=== PATIENT | male | born 1980 | race Caucasian/White ===

== ENCOUNTER 2025-05-06 02:45 | Day surgery (SDC) | payer OTHER, SELFPAY ==
[2025-04-21 12:53] VITALS: BMI 27.4
--- OUTSIDE RECORDS SUMMARY | 2025-05-06 02:50 | XMS_ITS | Clinical Summary ---
Author Organization [facility] e Address [address] [place] [address] Care Team Providers Care Ship'S Pilot Name Role Phone Kylah Bass MD Primary Care Provider +1- [phone] Allergies No known active allergies Medications FLUoxetine (PROzac) 10 mg tabletIndication s:MUNIR (generalized anxiety disorder) Take 1 Tablet (10 mg) by mouth daily. 90 Tablet 3 04/07/2023 Active buPROPion HCL (WELLBUTRIN XL) 150 mg Extended Release 24 hour tabletIndication s:Current moderate episode of major depressive disorder without prior episode (CMS/HCC) Take 1 Tablet (150 mg) by mouth daily in the morning. 90 Tablet 3 04/07/2023 Active Active Problems Problem Noted Date Diagnosed Date Current moderate episode of major depressive disorder without prior episode 09/10/2022 Overview (09/10/2022): Wellbutrin XL Assessment & Plan (09/10/2022 3:02 PM ENROLLMENT SERVICES VICE PRESIDENT): Poorly controlled, add bupropion per orders Every Word Counts - Depression ([facility]) Gynecomastia, male 09/10/2022 Assessment & Plan (09/10/2022 3:01 PM ENROLLMENT SERVICES VICE PRESIDENT): May be medication related, labs per orders. Obesity (BMI 35.0-39.9 without comorbidity) 08/29 Assessment & Plan (09/10/2022 3:01 PM ENROLLMENT SERVICES VICE PRESIDENT): Discussed diet/exercise/weight loss recommendations. MUNIR (generalized anxiety disorder) 09/27/2021 Overview (09/10/2022): Fluoxetine Assessment & Plan (09/10/2022 3:01 PM ENROLLMENT SERVICES VICE PRESIDENT): Improved, continue fluoxetine. Systolic murmur 04/22/2017 Paternal family history of congestive heart fail ure 04/22/2017 Vasectomy evaluation 08/11/2015 Lipoma 05/27/2012 Elevated blood pressure read ing without diagnosis of hypertension 05/25/2012 Resolved Problems Problem Noted Date Diagnosed Date Resolved Date Family history of early CAD 05/25/2012 04/22/2017 Immunizations Immunization Administration Dates Next Due (ADACEL/BOOSTRIX)(10 YR UP) TDAP VACCINE, 0.5ML, IM 08/11/2012 INFLUENZA VACCINE QUADRIVALE NT 6 MOS UP CELL DERIVED PF IM 07/16/2018 INFLUENZA VACCINE QUADRIVALENT 6 MOS UP PF IM ,07/17/2021 Influenza Vaccine Quad Split 3+ Yrs Im 4 Influenza Vaccine Split 3+ Yrs IM 09/27/2013 Family History Medical History Relation Name Comments Heart Disease Father Trent [place] in early 40 s Cancer Maternal Grandfather Johnie Cancer Maternal Grandmother Jeni Diabetes Maternal Grandmother Jeni Stroke Maternal Grandmother Jeni Thyroid Disease Maternal Grandmother Jeni Hypertension Mother Na Cancer Paternal Grandfather Trent Heart Disease Paternal Grandfather Trent Breast Cancer Paternal Grandmother Sofya Cancer Paternal Grandmother Sofya Relation Name Status Comments Father Trent Maternal Grandfather Johnie Maternal Grandmother Jeni Mother Na Alive Paternal Grandfather Trent Paternal Grandmother Sofya Social History Tobacco Use Types Packs/Day Years Used Date Smoking Tobacco: Never Smokeless Tobacco: Never Tobacco Cessation:Counseling Given: Not Answered Alcohol Use Standard Drinks/Week Comments Not Currently 0 (1 standard drink = 0.6 oz pur e alcohol) Sex and Gender Information Value Date Recorded Sex Assigned at Not on file Legal Sex Male 6:11 AM ENROLLMENT SERVICES VICE PRESIDENT Gender Identity Not on file Sexual Orientation Not on file Occupation Industry Job Start Date Job End Date Not on file Not on file Not on file Not on file Last Filed Vital Signs Vital Sign Reading Time Taken Comments Blood Pressure 122/80 07/18/2022 8:04 AM CDT Pulse 73 07/18/2022 8:04 AM CDT Temperature 36.7 C (98 F) 07/18/2022 8:04 AM CDT Respiratory Rate 16 07/17/2021 8:49 AM CDT Oxygen Saturation 98% 07/18/2022 8:04 AM CDT Inhaled Oxygen Concentration - - Weight 134.3 kg (296 lb) 07/18/2022 8:04 AM CDT Height 188 cm (6' 2) 07/18/2022 8:04 AM CDT Body Mass Index 38 07/18/2022 8:04 AM CDT Plan of Treatment Health Maintenance Due Date Last Done Comments HPV VACCINES (1 - Male 3-dos e series) 1994 HEPATITIS B VACCINES (1 of 3 - 19+ 3-dose series) 1998 DTAP/TDAP/TD VACCINES (2 - T d or Tdap) 08/11/2022 08/11/2012 COLORECTAL SCREENING 2024 Colorectal Cancer Screening 2024 FIT-DNA Q 3 years 2024 FIT/FOBT Q 1 year 2024 Flex Sig/CT Colonography Q 5 years 2024 INFLUENZA VACCINE (#1) 2025 , 07/17/2021, 07/16/2018, Additional history exists Insurance [facility] [employer] Care Teams Ship'S Pilot Relationship Specialty Start Date End Date Kylah Bass MD PCP - General Family Practice 05/25/12
[2025-05-06 09:15] VITALS: BP 128/71; PULSE 78; RESP 16; TEMP 36.1; O2SAT 100; BMI 27.3
--- NOTE | 2025-05-06 09:24 | P.PNAN_ITS ---
Anes - Initial Pre Proc Eval Procedure: Operation Date: 05/06/25 10:30 Proposed Procedures p Screening Colonoscopy - Tal Ivory MD Date/Time: 05/06/25 09:24 Surgeon: Tal Ivory MD Pre Op Diagnosis: Screening Patient Data Age: 44 Gender: M Height: 1.88 m Weight: 97 kg Allergies Allergy/AdvReac Type Severity Reaction Status Date / Time No Known Allergies Allergy Verified 05/06/25 09:21 Home Medications ?Medication ?Instructions ?Recorded ?Confirmed ?Type fluoxetine 10 mg capsule See Rx Instructions .Route 01/03/25 01/13/25 Rx .COMPLEX #90 caps Wegovy 2.4 mg/0.75 mL subcutaneous 2.4 mg (0.75 mL) subcut WEEKLY #3 02/01/25 04/21/25 Rx pen injector (semaglutide (weight mL loss)) tirzepatide (weight loss) 12.5 12.5 mg (0.5 mL) subcut WEEKLY #2 02/03/25 05/06/25 Rx mg/0.5 mL subcutaneous pen mL injector (Zepbound) bupropion HCl 150 mg 24 hr tablet, 150 mg PO QAM #90 tabs 03/29/25 05/06/25 Rx extended release Patient hx anesthesia problems: none Family hx anesthesia problems: none Results Review: All pre-operative results and documents have been reviewed as part of the pre- operative evaluation. [facility] Past Medical History Medical History Vasectomy planned Surgical History Surgical History [place] teeth extracted Family History Family History Father Heart disease Mother Hypertension Grandparent Diabetes mellitus Lung cancer Breast cancer Hypertension Heart disease Thyroid disease Social History Social History Social History: caffeine use - 1 cup of tea per day Smoking status: Never smoker Alcohol intake: never Substance use: never Substance use type: does not use Do You Feel Safe in your Home?: Yes Lack of Transportation: No Lack of Food: Never True Current Housing: I Have Housing Concerned About Future Housing: No Difficulty Paying Gas/Electric Bills: No Difficulty Paying for Meds: No Currently Unemployed: No Education: Bachelor's Degree Difficulty w/ Childcare or Family Care: No Living arrangements: with family Spiritual care concerns: No Anes - Eval Final PreProcedure Day of Procedure 05/06/25 09:24 Patient weight: overweight Heart: regular rate and rhythm Lungs: clear to auscultation Airway: Mallampati scale class II Neurological: alert and oriented Last oral intake: >/= 8 hours ASA classification: II Emergent: no Anesthetic plan: proceed Anesthesia type and monitoring: general GIVS and standard monitoring Results Review: All pre-operative results and documents have been reviewed as part of the pre- operative evaluation. Informed Consent: The patient's anesthetic plan and its attendant risks and benefits were discussed with the patient/family/POA. Questions were solicited and answers provided to the satisfaction of the patient/family/POA.
[2025-05-06] MEDS: LACTATED RINGERS 1,000 ML 150 ML IV CONT (09:33)
--- NOTE | 2025-05-06 09:37 | P.HP_ITS ---
H&P: HPI History of Present Illness Date/Time: 05/06/25 09:37 Chief Complaint: screening colonoscopy Narrative: This is the patient's first colonoscopy. There are no GI symptoms and there is no family history of colorectal cancer. Review of Systems Review of Systems: All systems reviewed & are unremarkable except as noted in HPI and below PMFSH Past Medical History Medical History Vasectomy planned Surgical History Surgical History [place] teeth extracted Family History Family History Father Heart disease Mother Hypertension Grandparent Diabetes mellitus Lung cancer Breast cancer Hypertension Heart disease Thyroid disease Social History Social History Social History: caffeine use - 1 cup of tea per day Smoking status: Never smoker Alcohol intake: never Substance use: never Substance use type: does not use Do You Feel Safe in your Home?: Yes Lack of Transportation: No Lack of Food: Never True Current Housing: I Have Housing Concerned About Future Housing: No Difficulty Paying Gas/Electric Bills: No Difficulty Paying for Meds: No Currently Unemployed: No Education: Bachelor's Degree Difficulty w/ Childcare or Family Care: No Living arrangements: with family Spiritual care concerns: No Meds Home Medications and Allergies Home Medications ?Medication ?Instructions ?Recorded ?Confirmed ?Type fluoxetine 10 mg capsule See Rx Instructions .Route 01/03/25 01/13/25 Rx .COMPLEX #90 caps Wegovy 2.4 mg/0.75 mL subcutaneous 2.4 mg (0.75 mL) subcut WEEKLY #3 02/01/25 04/21/25 Rx pen injector (semaglutide (weight mL loss)) tirzepatide (weight loss) 12.5 12.5 mg (0.5 mL) subcut WEEKLY #2 02/03/25 05/06/25 Rx mg/0.5 mL subcutaneous pen mL injector (Zepbound) bupropion HCl 150 mg 24 hr tablet, 150 mg PO QAM #90 tabs 03/29/25 05/06/25 Rx extended release Allergies Allergy/AdvReac Type Severity Reaction Status Date / Time No Known Allergies Allergy Verified 05/06/25 09:21 Vital Signs Vital Signs - 24 hr 05/06/25 09:15 Temperature 97.0 F L Pulse Rate 78 Respiratory Rate 16 Blood Pressure 128/71 Pulse Oximetry 100 Oxygen Delivery Room Air Exam Const: General: cooperative and healthy appearing Resp: Effort & Inspection: normal respiratory effort and able to speak in complete sentences Auscultation: clear to auscultation bilaterally Cardio: Rate: regular rate Rhythm: regular rhythm GI: Inspection: normal to inspection GI Palp: No No hepatosplenomegaly present Auscultation: normal bowel sounds Rectal Exam: deferred Skin: General skin exam: normal color Psych: Appearance: grossly normal Mental Status: mental status grossly normal Assessment and Plan Assessment and plan (1) Encounter for screening colonoscopy: Code(s): Z12.11 - Encounter for screening for malignant neoplasm of colon Status: Acute Assessment and Plan: The patient is deemed a good candidate for the procedure. Consent signed. Will proceed.
--- NOTE | 2025-05-06 10:22 | S_PTH ---
PATIENT: Issac Aponte LOC: [facility] #:[id number] AGE/SX: 44/M ROOM: RE05/06/[address]: Tal Ivory MD : 1980 BED: DIS: 05/06/2025 SPEC #: [id number] RECD: 05/06/25 10:28 STATUS: YVROSE REQ #: [id number] LANDON: 05/06/25 10:[address]: Tal Ivory DEPT: [facility] Surgical RECD BY: Radha Kim ENTERED: 05/06/25 10:28 SP TYPE: Surgical OTHR DR: Shantelle Keenan MD Tissues: A - Colon Polypectomy B - Colon Polypectomy Procedures: Hematoxylin and Eosin Stain Gross and Microscopic Level 4
[2025-05-06 10:23] VITALS: BP 109/68; PULSE 73; RESP 17; O2SAT 100
[2025-05-06 10:33] VITALS: BP 106/68; PULSE 72; RESP 18; O2SAT 100
[2025-05-06 10:43] VITALS: BP 110/72; PULSE 70; RESP 17; O2SAT 100
== END 2025-05-06 10:53 | disposition home or self-care (01) ==
PROVIDERS: PCP Family Medicine; Referring Provider Family Medicine; Visit Provider Internal Medicine Gastroenterology
PROC: 0DJD8ZZ Inspection of Lower Intestinal Tract, Via Natural or Artificial Opening Endoscopic (ICD-10-PCS; CPT 45378; principal; 2025-05-06 10:30)
DX: Z12.11 Encounter for screening for malignant neoplasm of colon (principal); K63.5 Polyp of colon; Z79.85 Long-term (current) use of injectable non-insulin antidiabetic drugs; Z98.890 Other specified postprocedural states; Z80.1 Family history of malignant neoplasm of trachea, bronchus and lung; Z80.3 Family history of malignant neoplasm of breast; Z82.49 Family history of ischemic heart disease and other diseases of the circulatory system
CPT/HCPCS: 45385; 88305; J2704; J7120

== ENCOUNTER 2025-07-14 10:22 | Emergency (ER) | payer OTHER, SELFPAY ==
[2025-07-14] VITALS (23 sets, daily range): BP systolic 112–140; BP diastolic 61–88; PULSE 75–90; RESP 14–20; O2SAT 93–100
--- NOTE | ~2025-07-14 | XR_ITS ---
EXAMINATION: XR shoulder RT min 2V, 07/14/2025 12:40 CDT HISTORY: Right shoulder pain COMPARISON: No comparisons available. Findings: No acute fracture or malalignment. No significant degenerative changes. Soft tissues unremarkable. Impression: No acute fracture or malalignment. Reviewed, dictated and finalized at location P. Impression: No acute fracture or malalignment.
--- NOTE | ~2025-07-14 | XR_ITS ---
Examination: XR chest 2V Clinical History: Right shoulder pain Comparison: None Technique: PA and Lateral Findings: Cardiomediastinal silhouette normal size and configuration. Lungs clear. No acute bony abnormality. IMPRESSION: 1. No acute cardiopulmonary findings. Reviewed, dictated and finalized at location R.
--- NOTE | 2025-07-14 11:48 | ECG_ITS ---
Test Date: 2025-07-14 12:02:53 Measurements Intervals [place] Rate: 92 P: 42 LA: 154 QRS: 64 QRSD: 93 T: 43 QT: 350 QTc: 435 Interpretive Statements SINUS RHYTHM BASELINE ARTIFACT- I, II, III, AVR, AVL, AVF NORMAL ECG No previous ECG available for comparison Electronically Signed On 07-14-2025 12:13:26 CDT by Valente Jenkins D.O.
--- OUTSIDE RECORDS SUMMARY | 2025-07-14 11:59 | XMS_ITS | Clinical Summary ---
Author Organization [facility] e Address [address] [place] [address] Care Team Providers Care Link Assembler Name Role Phone Kylah Bass MD Primary Care Provider +1- [phone] Allergies No known active allergies Medications FLUoxetine [...] XL Assessment & Plan (09/10/2022 3:02 PM LINK WIRE FABRIC MACHINE TENDER): Poorly controlled, add bupropion per orders Every Word Counts - Depression ([facility]) Gynecomastia, male 09/10/2022 Assessment & Plan (09/10/2022 3:01 PM LINK WIRE FABRIC MACHINE TENDER): May be medication related, labs per orders. Obesity (BMI 35.0-39.9 without comorbidity) 08/29 Assessment & Plan (09/10/2022 3:01 PM LINK WIRE FABRIC MACHINE TENDER): Discussed diet/exercise/weight loss recommendations. MUNIR (generalized anxiety disorder) 09/27/2021 Overview (09/10/2022): Fluoxetine Assessment & Plan (09/10/2022 3:01 PM LINK WIRE FABRIC MACHINE TENDER): Improved, continue fluoxetine. Systolic murmur 04/22/2017 Paternal [...] Relation Name Comments Heart Disease Father Trent [place] in early 40 s Cancer Maternal Grandfather [...] on file Legal Sex Male 6:11 AM LINK WIRE FABRIC MACHINE TENDER Gender Identity Not on file Sexual Orientation [...] Health Maintenance Due Date Last Done Comments HEPATITIS B VACCINES (1 of 3 - 19+ 3-dose series) 1998 DTAP/TDAP/TD VACCINES (2 - Td or Tdap) 08/11/2022 08/11/2012 COLORECTAL SCREENING 2024 Colorectal Cancer Screening 2024 FIT-DNA Q 3 years 2024 FIT/FOBT Q 1 year 2024 Flex Sig/CT Colonography Q 5 years 2024 INFLUENZA VACCINE (#1) 2025 2, 07/17/2021, 07/16/2018, Additional history exists HPV VACCINES Aged Out No longer eligi ble based on patient's age to complete this topic Insurance [facility] Care Teams Link Assembler Relationship Specialty Start Date End Date Kylah Bass MD PCP - General Family Practice 05/25/12
[2025-07-14] MEDS: KETOROLAC 30 MG/ML VIAL (*BKC) IV PUSH (12:07)
[2025-07-14 12:41] LABS: Troponin I < 0.012 ng/mL (0.000-0.034)
--- NOTE | 2025-07-14 12:55 | ED.NEUROSD ---
HPI - Neuro Symptoms/Deficit General Chief Complaint: Neuro Symptoms/Deficit Stated Complaint: woke up at 0430, numb/no movement R arm Time Seen by Provider: 07/14/25 11:31 Source: patient Mode of arrival: ambulatory Limitations: no limitations History of Present Illness HPI Narrative: This is a 45-year-old male, who denies significant past medical history, presenting to the emergency department complaining of right shoulder pain beginning at 04:30 this morning. Patient denies any known trauma, heavy lifting and states he typically sleeps on the left side. He is describes the pain as sharp, head at the posterior aspect of the right shoulder, initially rated 5/10 in now nearly resolved with some radiation to the right anterior chest. He states the pain was aggravated by walking or the arm hanging at his side. He felt some lightheadedness that he attributes to the pain. He has no other complaints at this time. Related Data Allergies Allergy/AdvReac Type Severity Reaction Status Date / Time No Known Allergies Allergy Verified 05/06/25 09:21 Review of Systems Review of Systems: All systems reviewed & are unremarkable except as noted in HPI and below PMFSH Past Medical History Medical History Vasectomy planned Surgical History Surgical History [place] teeth extracted Family History Family History Father Heart disease Mother Hypertension Grandparent Diabetes mellitus Lung cancer Breast cancer Hypertension Heart disease Thyroid disease Social History Social History Social History: caffeine use - 1 cup of tea per day Smoking status: Never smoker Alcohol intake: never Substance use: never Substance use type: does not use Do You Feel Safe in your Home?: Yes Lack of Transportation: No Lack of Food: Never True Current Housing: I Have Housing Concerned About Future Housing: No Difficulty Paying Gas/Electric Bills: No Difficulty Paying for Meds: No Currently Unemployed: No Education: Bachelor's Degree Difficulty w/ Childcare or Family Care: No Living arrangements: with family Spiritual care concerns: No Exam Narrative: GENERAL: Well-developed, well-nourished, and in no acute distress. HEAD: Normocephalic, atraumatic. EYES: PERRLA and EOMI. CHEST: Clear to auscultation. No respiratory distress. No wheezes rales or rhonchi HEART: Regular rate and rhythm. No murmur heard. Normal peripheral pulses. ABDOMEN: Soft, nontender, nondistended, normal active bowel sounds. EXTREMITIES: No visible deformity of the right shoulder. Tenderness to palpation at the posterior aspect without step-off or crepitus. Some tenderness to palpation over the right trapezius with muscle spasm. Passive range of motion of the arm a list it is pain on anterior flexion and abduction at 100?. Normal range of motion of all other extremities. No edema. SKIN: Warm, dry, no rash. NEURO: Alert and oriented x3. No focal deficit. Moving all 4 limbs spontaneously PSYCH: Normal mood and affect. Course Course Emergency Course: 13:13 - EKG not concerning for ischemia. Troponin negative. Heart score 1. I do not suspect ACS. X-ray of the chest and shoulder not concerning for acute cardiopulmonary or musculoskeletal process. I suspect the patient's pain is related to rotator cuff arthropathy. Will discharge with NSAIDs, lidocaine patches, muscle relaxers and recommendation for primary care follow-up. I discussed the findings and recommendations with patient. Discussed return and emergency precautions including signs/symptoms of ACS respiratory distress. The patient voiced understanding and agreement with the plan. All questions answered to his satisfaction. Vital Signs Vital signs: Vital Signs Pulse Rate 86 07/14/25 11:37 Respiratory Rate 14 07/14/25 11:37 Blood Pressure 140/77 07/14/25 11:37 Pulse Oximetry 100 07/14/25 11:37 Oxygen Delivery Room Air 07/14/25 11:37 Pulse Rate 86 07/14/25 11:37 Respiratory Rate 14 07/14/25 11:37 Blood Pressure 140/77 07/14/25 11:37 Pulse Oximetry 100 07/14/25 11:37 Oxygen Delivery Room Air 07/14/25 11:37 MDM - Neuro Symptoms/Deficit MDM Narrative Medical decision making narrative: Plan: Imaging, EKG, pain control, labs, reassess Differential Diagnosis Differential diagnosis: Likely other (Rotator cuff of arthropathy, fracture, contusion, cervical radiculopathy, ACS, other) Lab Data Labs: Lab Results 07/14/25 07/14/25 Range/Units 11:34 12:09 POC Capillary Glucose 76 (65-105) mg/dl Troponin I < 0.012 (0.000-0.034) ng/mL ECG Data EKG #1: Attestation: I personally reviewed and interpreted this ECG as follows: ECG completion date: 07/14/25 ECG completion time: 12:02 Prior ECG tracings: not available for review Interpretation: Sinus rhythm, rate 92, normal axis, no ST segment elevations or T-wave inversions concerning for ischemia, normal intervals with QTC of 400 Discharge Plan Discharge Clinical Impression: Acute pain of right shoulder, Rotator cuff arthropathy Patient Disposition: Home Condition: Stable Instructions: Antibiotic Form, Rotator Cuff Injury (ED), Rotator Cuff Injury Exercises (DC) Additional Instructions: You were seen in the emergency department. X-rays of the chest and shoulder were not concerning for fracture, separation or dislocation. An EKG and labs were not concerning for injury to the heart. I suspect your shoulder pain is related to a rotator cuff injury. I recommend NSAIDs, lidocaine patches, muscle relaxers and follow-up with a primary care doctor. If you develop new or worsening chest pain, weakness/numbness, fevers with severe joint pain and swelling, the arm/hand appears blue/cold, or if you have other emergent concerns for life, limb, or eyesight, return to the emergency department. Patient Language: Fijian Prescriptions: New lidocaine 5 % adhesive patch,medicated 1 patch topical DAILY Qty: 30 0RF Rx Instructions: leave on most painful area for up to 12 hrs naproxen 500 mg tablet 500 mg PO BID PRN (Reason: pain) Qty: 20 0RF cyclobenzaprine 10 mg tablet 10 mg PO TID PRN (Reason: muscle spasm) Qty: 12 0RF No Action fluoxetine 10 mg capsule See Rx Instructions .ROUTE .COMPLEX Qty: 90 1RF Dose Instruction: TAKE 1 CAPSULE BY MOUTH ONCE A DAY Patient Comments: Not taking Rx Instructions: TAKE 1 CAPSULE BY MOUTH ONCE A DAY Wegovy 2.4 mg/0.75 mL pen injector 2.4 mg subcut WEEKLY Qty: 3 11RF Patient Comments: not taking Zepbound 12.5 mg/0.5 mL pen injector 12.5 mg subcut WEEKLY Qty: 2 8RF Patient Comments: Rx Instructions: max bmi 40.6 now 29.5 ( has been on zepbound) bupropion HCl 150 mg tablet extended release 24 hr 150 mg PO QAM Qty: 90 1RF Follow-up/Referrals: Shantelle Keenan MD [Primary Care Provider, [facility]] - 2 Weeks Time of Disposition: 13:37
--- OUTSIDE RECORDS SUMMARY | 2025-07-14 13:51 | XMS_ITS | Clinical Summary ---
Author Organization [facility] e Address [address] [place] [address] Care Team Providers Care C Architect Name Role Phone Kylah Bass MD Primary Care Provider +1- [phone] Allergies No known active allergies Medications FLUoxetine [...] XL Assessment & Plan (09/10/2022 3:02 PM ENTERPRISE APPLICATION DEVELOPER): Poorly controlled, add bupropion per orders Every Word Counts - Depression ([facility]) Gynecomastia, male 09/10/2022 Assessment & Plan (09/10/2022 3:01 PM ENTERPRISE APPLICATION DEVELOPER): May be medication related, labs per orders. Obesity (BMI 35.0-39.9 without comorbidity) 08/29 Assessment & Plan (09/10/2022 3:01 PM ENTERPRISE APPLICATION DEVELOPER): Discussed diet/exercise/weight loss recommendations. MUNIR (generalized anxiety disorder) 09/27/2021 Overview (09/10/2022): Fluoxetine Assessment & Plan (09/10/2022 3:01 PM ENTERPRISE APPLICATION DEVELOPER): Improved, continue fluoxetine. Systolic murmur 04/22/2017 Paternal [...] Relation Name Comments Heart Disease Father Trent [place] in early 40 s Cancer Maternal Grandfather [...] on file Legal Sex Male 6:11 AM ENTERPRISE APPLICATION DEVELOPER Gender Identity Not on file Sexual Orientation [...] patient's age to complete this topic Insurance [facility] [employer] Care Teams C Architect Relationship Specialty Start Date End Date Kylah Bass MD PCP - General Family Practice 05/25/12
== END 2025-07-14 14:30 | disposition home or self-care (01) ==
PROVIDERS: Emergency Provider Preventive Medicine Aerospace Medicine; PCP Family Medicine
DX: M25.511 Pain in right shoulder (principal); M12.9 Arthropathy, unspecified
CPT/HCPCS: 36415; 71046; 73030; 82948; 84484; 93005; 96374; 99284; J1885

== ENCOUNTER 2025-08-11 12:43 | Outpatient (CLI) | payer OTHER, SELFPAY ==
--- NOTE | ~2025-08-11 | MR_ITS ---
EXAM/PROCEDURE: MR shoulder RT wo con HISTORY: M75.81 - Other shoulder lesions, right shoulder COMPARISON: July 14 x-rays TECHNIQUE: Noncontrast enhanced multiplanar MRI of the right shoulder FINDINGS: No fracture subluxation or dislocation. Moderately severe diffuse osteoarthritic degenerative changes about the shoulder including chondral thinning and erosive changes at the glenohumeral joint, subchondral cystic changes developing at the greater tuberosity, and moderately severe arthrosis at the AC joint. Spurring is present along the inferior margin of the AC joint. Prominent linear hyperintense focus in the anterior labrum seen on images 13 through 16 of series 3 suspicious for anterior labral tear. Tiny full-thickness tear of the supraspinatus tendon seen on image 18 series 7 with no significant retracted moderate signal abnormality also present on the coronal T2-weighted images, images 10 through 13 of series 5. The subscapularis tendon appears intact. Teres minor and infraspinatus tendons appear intact. Mild edematous changes present along the anterior margin of the subscapularis tendon but no drainable fluid collection or discrete mass seen. The long head of the biceps tendon is intact within the bicipital groove and superior labral attachment appears intact. Spinoglenoid recess and suprascapular notch regions appear normal. IMPRESSION: 1. Tiny non retracted full-thickness tear of the supraspinatus tendon. 2. Mild infiltrative appearing changes immediately anterior to the subscapularis tendon; this tendon appears intact and findings could be associated with bursitis. 3. Moderately severe diffuse degenerative changes as detailed above. Reviewed, dictated and finalized at location [facility] IMPRESSION: 1. Tiny non retracted full-thickness tear of the supraspinatus tendon. 2. Mild infiltrative appearing changes immediately anterior to the subscapulari s tendon; this tendon appears intact and findings could be associated with burs itis. 3. Moderately severe diffuse degenerative changes as detailed above.
== END 2025-08-11 12:44 | disposition home or self-care (01) ==
LOC: GOSHIMG 12:43
PROVIDERS: PCP Family Medicine; Visit Provider Family Medicine
DX: M75.81 Other shoulder lesions, right shoulder (principal); R91.8 Other nonspecific abnormal finding of lung field
CPT/HCPCS: 73221